=== PATIENT | female | born 1965 | race Caucasian/White ===

== ENCOUNTER 2021-08-28 18:24 | Outpatient (CLI) | payer OTHER ==
--- NOTE | 2021-08-30 02:20 | XRAY Report ---
PROCEDURE: Knee 3 View LT INDICATIONS: L KNEE PX TECHNIQUE: 3 views of the left knee(s) were acquired. Images became available for interpretation on 08/29/2021. COMPARISON: None. FINDINGS: Bones: No fractures or dislocations. No suspicious bony lesions. Knee arthroplasty is present. Amando dware is intact without evidence of hardware fracture or periprosthetic lucency to suggest loosening. Soft tissues: No joint effusion. No suspicious soft tissue calcifications. IMPRESSION: Knee arthroplasty as above. Reviewed by: Yesenia Laird MD on 08/30/2021 12:43 AM PDT Approved by: Yesenia Laird MD on 08/30/2021 12:43 AM PDT Station ID: [id number]
== END 2021-08-28 23:59 ==
LOC: DI.N 18:24
PROVIDERS: ATTEND Family Medicine
DX: M25.562 Pain in left knee (principal); Z96.652 Presence of left artificial knee joint

== ENCOUNTER 2022-06-25 16:36 | Outpatient (CLI) | payer OTHER ==
--- NOTE | 2022-06-26 21:06 | XRAY Report ---
PROCEDURE: Ankle 3 View LT INDICATIONS: LEFT ANKLE PAIN TECHNIQUE: 3 views of the ankle were acquired. COMPARISON: None FINDINGS: Bones: No fractures or dislocations. Ankle mortise is normally aligned. No suspicious bony lesions . Soft tissues: Ankle edema is present. It is most notable along the medial malleolus. Achilles tendon appears normal. IMPRESSION: Prominent ankle edema. No visualized acute fracture or dislocation. However, occult inju ry cannot be excluded. Recommend short interval imaging follow-up in 7-10 days as clinically indicate d for additional evaluation. Reviewed by: Yesenia Laird MD on 06/26/2022 9:04 PM PDT Approved by: Yesenia Laird MD on 06/26/2022 9:04 PM PDT Station ID: [id number]
== END 2022-06-25 16:37 | disposition home or self-care (01) ==
LOC: DI 16:36
PROVIDERS: ATTEND Physician Assistant
DX: M25.572 Pain in left ankle and joints of left foot (principal); R60.0 Localized edema

== ENCOUNTER 2022-07-11 15:05 | Outpatient (CLI) | payer OTHER ==
--- NOTE | 2022-07-11 15:30 | XRAY Report ---
PROCEDURE: Ankle 3 View LT INDICATIONS: PAIN IN LEFT ANKLE TECHNIQUE: 3 views of the ankle were acquired. COMPARISON: None FINDINGS: Bones: No fractures or dislocations. Ankle mortise is normally aligned. No suspicious bony lesions . There is a small calcaneal heel spur at insertion of the plantar fascia. Soft tissues: No tibiotalar joint effusion. Achilles tendon appears normal. There is moderate soft tissue swelling in the region of the medial malleolus. IMPRESSION: 1. Moderate soft tissue swelling over the medial malleolus. 2. No evidence for acute osseous abnormality seen. 3. Small calcaneal heel spur. Reviewed by: Sp Veliz MD on 07/11/2022 3:28 PM PDT Approved by: Sp Veliz MD on 07/11/2022 3:28 PM PDT Station ID: [id number]
== END 2022-07-11 15:06 | disposition home or self-care (01) ==
LOC: DI 15:05
PROVIDERS: ATTEND Physician Assistant
DX: M79.89 Other specified soft tissue disorders (principal); M77.32 Calcaneal spur, left foot